=== PATIENT | male | born 1960 | race Caucasian/White ===

== ENCOUNTER → 2019-07-01 08:28 | Outpatient (CLI) | payer BC ==
[~2019-07-01 08:28] MED LIST: BAYER CHEWABLE81 MG PO; CARDURA2 MG PO; CLEOCIN HCL150 MG PO; CO Q-10100 MG PO; COREG25 MG PO; HYDRALAZINE HCL25 MG PO; JANUMET 50-1,01 EAC1 PO; KEFLEX500 MG PO; LIPITOR20 MG PO; LOSARTAN-HCTZ1 EAC1 PO; NOVOLOG100 UNIT/1 SC; PIOGLITAZONE15 MG PO; PROTONIX40 MG PO; TRESIBA FL100 UNIT/1 SC; VITAMIN D5000 UNI3 PO; VOLTAREN25 MG PO
== END | disposition home or self-care (01) ==
LOC: D.US 08:28
DX: R22.42 Localized swelling, mass and lump, left lower limb (principal); E78.5 Hyperlipidemia, unspecified; I10 Essential (primary) hypertension; I51.9 Heart disease, unspecified; E11.9 Type 2 diabetes mellitus without complications; G47.9 Sleep disorder, unspecified; Z79.4 Long term (current) use of insulin

== ENCOUNTER 2019-07-01 09:18 | Emergency (ER) | payer BC ==
[~2019-07-01] VITALS: Ht 180.3 cm; Wt 136.4 kg
[2019-07-01 09:25] VITALS: Ht 180.3 cm; Wt 136.4 kg
[2019-07-01] MEDS ORDERED: TRESIBA FL100 UNIT/1 SC (09:28)
[2019-07-01] MEDS ORDERED: NOVOLOG100 UNIT/1 SC (09:28)
[2019-07-01] MEDS ORDERED: CARDURA2 MG PO (09:28)
[2019-07-01] MEDS ORDERED: JANUMET 50-1,01 EAC1 PO (09:29)
[2019-07-01] MEDS ORDERED: PIOGLITAZONE15 MG PO (09:29)
[2019-07-01] MEDS ORDERED: BAYER CHEWABLE81 MG PO (09:29)
[2019-07-01] MEDS ORDERED: LIPITOR20 MG PO (09:30)
[2019-07-01] MEDS ORDERED: COREG25 MG PO (09:30)
[2019-07-01] MEDS ORDERED: VITAMIN D5000 UNI3 PO (09:31)
[2019-07-01] MEDS ORDERED: PROTONIX40 MG PO (09:31)
[2019-07-01] MEDS ORDERED: CO Q-10100 MG PO (09:31)
[2019-07-01] MEDS ORDERED: LOSARTAN-HCTZ1 EAC1 PO (09:32)
[2019-07-01] MEDS ORDERED: HYDRALAZINE HCL25 MG PO (09:33)
[2019-07-01] MEDS ORDERED: CLEOCIN HCL150 MG PO (09:34)
[2019-07-01 10:23] LABS: HEMATOCRIT 43.3 % (42.0-54.0); HEMOGLOBIN 13.8 g/dL (13.5-17.5); LYMPHOCYTES 16.9 % (15-50); MCH 26.7 pg (26.0-34.0); MCHC 31.9 g/dL (31.0-37.0); MCV 83.8 fL (80.0-100.0); MEAN PLATELET VOLUME 9.9 fL (7.4-10.4); NEUTROPHILS 74.8 % (40-80); PLATELET COUNT 256 10x3/uL (130-400); RBC 5.17 10x6/uL (4.20-6.10); RDW 14.2 % (11.5-14.5); WBC 7.3 10x3/uL (4.8-10.8)
[2019-07-01 10:32] LABS: ANION GAP 12.6 mmol/L (8-16); CARBON DIOXIDE 27.2 mmol/L (21.0-32.0); CREATININE - SERUM 1.2 mg/dL (0.6-1.3); POTASSIUM - SERUM 3.8 mmol/L (3.5-5.1)
[2019-07-01 10:47] LABS: ALBUMIN 3.8 g/dL (3.4-5.0); BILIRUBIN - TOTAL 0.65 mg/dL (0.2-1.3); PROTEIN - SERUM 7.4 g/dL (6.4-8.2)
[2019-07-01] MEDS ORDERED: KEFLEX500 MG PO (11:19)
[2019-07-01] MEDS ORDERED: VOLTAREN25 MG PO (11:19)
[2019-07-01 12:12] VITALS: BP 166/84
== END 2019-07-01 12:13 | disposition home or self-care (01) ==
LOC: D.ER 09:18
PROVIDERS: Family Medicine
DX: L03.116 Cellulitis of left lower limb (principal); S80.12XA Contusion of left lower leg, initial encounter; E11.9 Type 2 diabetes mellitus without complications; I10 Essential (primary) hypertension; Z72.0 Tobacco use; Z79.4 Long term (current) use of insulin; W19.XXXA Unspecified fall, initial encounter; Y93.9 Activity, unspecified; Y92.9 Unspecified place or not applicable